=== PATIENT | male | born 1990 | race Two or more races ===

== ENCOUNTER 2016-07-11 23:18 | Emergency (ER) | payer SELFPAY ==
[~2016-07-11] VITALS: Ht 188 cm; Wt 70.3 kg
[2016-07-12] MEDS ORDERED: KETOROLAC TROMETHAMINE INJ 60 MG/2 ML VIAL IM ONE ×2 (00:03)
[2016-07-12 00:09] LABS: KETONES,URINE TRACE (NEGATIVE); LEUKOCYTE ESTERASE ,URINE NEGATIVE (NEGATIVE)
[2016-07-12 00:24] LABS: ADD UA MICROSCOPIC YES
[2016-07-12 00:29] LABS: ADD URINE CULTURE NO; MUCUS,URINE Many /LPF (None Seen); RBC,URINE 0-2 /HPF (0-2); WBC,URINE 0-2 /HPF (0-3)
[2016-07-12 01:31] VITALS: BP 124/74
== END 2016-07-12 01:32 | disposition home or self-care (01) ==
LOC: ER 23:22
DX: N43.3 Hydrocele, unspecified (principal); I86.1 Scrotal varices
CPT/HCPCS: 76870; 81001; 87491; 87591; 96372; 99285; A4606; J1885; Z7610; 81000-TC